=== PATIENT | female | born 1980 | race Caucasian/White ===

== ENCOUNTER 2020-03-06 15:13 | Emergency (ER) | payer OTHER ==
[2020-03-06 15:43] VITALS: BP 133/89; TEMP 98.7; O2SAT 98
[2020-03-06] MEDS ORDERED: KETOROLAC TROMETHAMINE INJ 30 MG/ML VIAL IM ONE (16:12)
[2020-03-06] MEDS ORDERED: ONDANSETRON ODT 8 MG TAB SL ONE (16:12)
[2020-03-06] MEDS ORDERED: DEXAMETHASONE INJ 10 MG/ML VIAL IM ONE (16:12)
--- NOTE | 2020-03-06 16:36 | ED.PDOC ---
History of Present Illness - General Chief Complaint: General Stated Complaint: R arm numbess, tingling and burning sensation Time Seen by Provider: 03/06/20 16:11 Source: patient, RN notes reviewed, Vital Signs reviewed Exam Limitations: no limitations - History of Present Illness Initial Comments: Patient is a 39-year-old female who presents with complaints of neck pain and p ain and numbness radiating down her right arm. This is been ongoing intermittently for the last month. Previously she had similar symptoms with pain radiating down her left arm. This has significantly worsened in last few days. The pain is burning in nature. It is moderate in intensity. Worse with movement or spasm of the right shoulder. Nothing makes it better Timing/Duration: other - Intermittently over the last few months but worsening over the last few days. Severity: moderate Improving Factors: nothing Worsening Factors: movement Associated Symptoms: denies symptoms Allergies/Adverse Reactions: Allergies NO KNOWN ALLERGY Allergy (Verified 03/06/20 15:43) Home Medications: Ambulatory Orders Ketorolac Tromethamine [Toradol Tabs] 10 mg PO Q6H #20 tab 03/06/20 Methylprednisolone [Medrol Dose Hemanth] 4 mg PO DAILY 6 Days #21 tab 03/06/20 Tramadol HCl [Ultram] 50 mg PO Q6H #20 tab 03/06/20 Review of Systems - Review of Systems Constitutional: States: no symptoms reported, see HPI. Denies: chills, fever, malaise, weakness EENTM: States: no symptoms reported. Denies: eye pain, blurred vision, double vision Respiratory: States: no symptoms reported. Denies: cough, short of breath Cardiology: States: no symptoms reported. Denies: chest pain, palpitations, syncope Gastrointestinal/Abdominal: States: nausea - Intermittently make it difficult for her to hold down water. Denies: abdominal pain, diarrhea, vomiting Genitourinary: States: no symptoms reported. Denies: dysuria, frequency Musculoskeletal: States: see HPI, neck pain. Denies: back pain, joint pain Skin: States: no symptoms reported. Denies: change in color, rash Neurological: States: see HPI, numbness, tingling. Denies: headache, weakness Endocrine: States: no symptoms reported. Denies: increased hunger, increased thirst, increased urine Hematologic/Lymphatic: States: no symptoms reported. Denies: blood clots, easy bleeding All other Systems: Reviewed and Negative Past Medical History (General) - Patient Medical History Hx Stroke: No Hx of COPD: No Hx Cardiac Disorders: No Hx Hypertension: No Hx Diabetes: No Hx Cancer: No Surgical History: cholecystectomy, tonsillectomy - Social History Hx Tobacco Use: Yes Hx Alcohol Use: Yes Hx Substance Use: No Hx Substance Use Treatment: No Hx Depression: No - Female History Patient is a Female of Child Bearing Age (10 -59 yrs old): Yes Patient : No Family Medical History - Family History Mother Living Status: Still Living Hx Family Hypertension: Yes Hx Family Diabetes: Yes Hx Family Cancer: Yes Physical Exam - Physical Exam General Appearance: Alert, Anxious, Well Developed, Well Groomed, Well Hydrated, Well Nourished Eye Exam: bilateral normal Ears, Nose, Throat: hearing grossly normal, normal ENT inspection, normal pharynx Neck: full range of motion, supple, tender lateral - right sided nomidline TTP. 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 Patient concerned regarding the numbness and tingling in her arm and hand. I explained to her that this is a probable cervical radiculopathy. We will start treatment with anti-inflammatories, muscle relaxers and steroids and follow-up with PCP, [facility] for further evaluation and possible referral for MRI. She voices understanding with the plan of care. Jose E Merritt M.D. #[id number] Departure - Departure Clinical Impression: Cervical radiculopathy Time of Disposition: 16:46 Disposition: Discharge to Home or Self Care Condition: Fair Departure Forms: ED Discharge - Pt. Copy, Patient Portal Self Enrollment Instructions: Herniated Disc (DC), Radiculopathy (DC) Diet: resume usual diet Activity: increase activity as tolerated, may shower, no tub bath Referrals: Dewayne Perez MD [Physicians] - 1-5 Days Prescriptions: Methylprednisolone [Medrol Dose Hemanth] 4 mg PO DAILY 6 Days #21 tab Ketorolac Tromethamine [Toradol Tabs] 10 mg PO Q6H #20 tab Tramadol HCl [Ultram] 50 mg PO Q6H #20 tab Home Medications: Ambulatory Orders Ketorolac Tromethamine [Toradol Tabs] 10 mg PO Q6H #20 tab 03/06/20 Methylprednisolone [Medrol Dose Hemanth] 4 mg PO DAILY 6 Days #21 tab 03/06/20 Tramadol HCl [Ultram] 50 mg PO Q6H #20 tab 03/06/20
== END 2020-03-06 17:01 | disposition home or self-care (01) ==
LOC: ER 15:13
DX: M54.12 Radiculopathy, cervical region (principal); Z87.891 Personal history of nicotine dependence
CPT/HCPCS: J1100; J1885